=== PATIENT | female | born 1985 | race Hispanic/Latino ===

== ENCOUNTER → 2018-09-20 16:45 | Outpatient (CLI) | payer OTHER, SELFPAY ==
--- NOTE | 2018-09-20 16:52 | DI.RAD.S_ITS ---
PROCEDURE: XR CHEST 2V INDICATIONS: CHEST PAIN SHORTNESS OF BREATH TECHNIQUE: 2 views of the chest were acquired. COMPARISON: None. FINDINGS: Surgical changes and devices: None. Lungs and pleura: Lungs are clear. No pleural effusions or pneumothorax. Mediastinum: Mediastinal contours are normal. Heart size is normal. Bones and chest wall: No suspicious bony abnormalities. Soft tissues appear unremarkable. IMPRESSION: No acute disease Dictated by: Federico Solorzano M.D. on 09/20/2018 at 17:39 Approved by: Federico Solorzano M.D. on 09/20/2018 at 17:40
== END ==
PROVIDERS: Visit Provider Physician Assistant
DX: R07.9 Chest pain, unspecified (principal); R06.02 Shortness of breath
CPT/HCPCS: 71046

== ENCOUNTER → 2019-05-25 08:47 | Outpatient (CLI) | payer OTHER, SELFPAY ==
[2019-05-25 09:31] LABS: Add Manual Diff / Slide Review NO; Basophils Absolute Auto 0 /uL (0-100); Basophils Percent Auto 0.4 % (0-2); Eosinophils Absolute Auto 0 /uL (0-450); Eosinophils Percent Auto 0.4 % (2-4); Hematocrit 38.4 % (36-46); Hemoglobin 13.3 g/dL (12.0-16.0); Lymphocytes Absolute Auto 900 /uL (1100-4500); Lymphocytes Percent Auto 11.4 % (25-40); Mean Corpuscular HGB Conc 34.6 % (30-36); Mean Corpuscular Hemoglobin 31.8 PG (26-34); Mean Corpuscular Volume 91.9 fL (80-100); Monocytes Absolute Auto 400 /uL (0-900); Monocytes Percent Auto 5.4 % (3-14); Neutrophils Absolute Auto 6400 /uL (1500-7000); Neutrophils Percent Auto 82.4 % (50-75); Platelet Count 267 X10^3/uL (150-400); Red Blood Cell Count 4.18 X10^6/uL (4.0-5.2); Red Cell Distribution Width 13.1 % (11.6-14.8); White Blood Cell Count 7.7 X10^3/uL (4.5-11.0)
[2019-05-25 10:33] LABS: Appearance Urine UA CLEAR; Bilirubin Urine UA NEGATIVE (NEGATIVE); Color Urine UA YELLOW; Glucose Urine UA NEGATIVE (Negative); Ketones Urine UA NEGATIVE (NEGATIVE); Leukocyte Esterase Urine UA NEGATIVE (NEGATIVE); Nitrite Urine UA NEGATIVE (Negative); Occult Blood Urine UA TRACE-LYSED (Negative); Protein Urine UA NEGATIVE (Negative); Specific Gravity Urine UA <=1.005 (1.000-1.035); Urobilinogen Urine UA 0.2 E.U./dL (0.2)
[2019-05-25 10:36] LABS: Hepatitis B Surface Antigen NEGATIVE s/c (NEGATIVE)
[2019-05-25 10:51] LABS: HIV 1 & 2 Ab/Ag 4th Gen Combo NEGATIVE (NEGATIVE); Hep C Virus Ab w/Reflex Quant NEGATIVE s/c (NEGATIVE)
[2019-05-25 12:01] LABS: Urine N gonorrhoeae NOT DETECTED
[2019-05-25 12:10] LABS: Urine Chlamydia NOT DETECTED
[2019-05-27 20:56] LABS: RPR Screen Nonreactive (Nonreactive)
== END ==
PROVIDERS: Visit Provider Obstetrics & Gynecology
DX: Z34.01 Encounter for supervision of normal first pregnancy, first trimester (principal)
CPT/HCPCS: 36415; 80055; 81003; 86787; 86803; 86850; 86900; 86901; 87086; 87389; 87491; 87591

== ENCOUNTER → 2019-07-12 08:23 | Outpatient (CLI) | payer OTHER, SELFPAY ==
[2019-07-18 10:42] LABS: Calc Gestational Age 16.3
[2019-07-18 10:43] LABS: AFP, Serum 43.7
[2019-07-18 10:44] LABS: Estriol, Free 0.93; hCG, MoM 2.33; hCG, Serum 87.2
[2019-07-18 10:46] LABS: Inhibin A, Dimeric 230; Maternal Ethnicity HISPANIC; Maternal Weight 120; Number of Fetuses 1
[2019-07-18 10:47] LABS: Cigarette Smoker NO; Donated Egg NO; Previous Pregnancy Down Syndro NO
[2019-08-01 10:25] LABS: Inhibin A, MoM 1.28
== END ==
PROVIDERS: Visit Provider Obstetrics & Gynecology
DX: Z34.02 Encounter for supervision of normal first pregnancy, second trimester (principal)
CPT/HCPCS: 36415; 82105; 82677; 84702; 86336

== ENCOUNTER → 2019-08-08 08:17 | Outpatient (CLI) | payer OTHER, SELFPAY ==
--- NOTE | 2019-08-08 08:21 | DI.US.S_ITS ---
PROCEDURE: US OB >= 14 WEEKS FETUS INDICATIONS: ANATOMY OUTSIDE/PRIOR DATING DATA: Last menstrual period (LMP): Unknown. LMP-based estimated date of delivery (JONA): Unknown. First dating scan (date and location): 05/25/19. Estimated date of delivery (JONA) from first dating scan: 12/28/19. TECHNIQUE: Real-time scanning was performed of the fetus, with image documentation and biometric measurements. Endovaginal scanning: Not performed COMPARISON: [facility], , OB <= 14 WEEKS FETUS, 05/25/2019, 8:11. FINDINGS: General: A single living intrauterine gestation is present. Presentation: Breech. Placenta: Placental position is posterior, without previa. Amniotic fluid index: 21.0 cm, normal range is 5-24 cm. heart rate: 143 beats per minute. Maternal cervical canal: 6.8 cm long. Normal lower limit is 2.5 cm. biometrics: Biparietal diameter: 5.2 cm, 21 weeks 5 days Head circumference: 18.9 cm, 21 weeks 2 days Abdominal circumference: 15.6 cm, 20 weeks 5 days Femur length: 3.2 cm, 20 weeks zero days Estimated gestational age from initial scan: 19 weeks 5 days Composite gestational age from present scan: 21 weeks zero days Estimated weight and percentile: 359 g, 87th percentile Measurement variability for biometric dating: +/- 7 days from 14 weeks to 15 weeks 6 days gestation, +/- 10 days from 16 weeks to 21 weeks 6 days gestation, +/- 2 weeks from 22 weeks to 27 weeks 6 days gestation, +/- 3 weeks for 28 weeks gestation or later. weight reference: 4500 g or EFW >90/95% is considered macrosomia or large for gestational age. EFW <10% is small for gestational age. EFW 5% or less is considered intra-uterine growth restriction. Anatomic survey: Neuro: Ventricles are non-dilated at less than 10 mm. Cisterna magna is normal at 3-11 mm. Cerebellum is normal in size and morphology. Nuchal skin fold: Normal at less than 6 mm between 14-21 weeks gestational age. Face: Nose and lips within normal limits no facial profile not seen due to position Spine: No evidence for spina bifida. Heart: 4-chambered heart is present, with normal ventricular outflow tracts. Diaphragm: Diaphragm is intact. Stomach: Left-sided stomach is present. Kidneys: No hydronephrosis. Normal is less than 5 mm in 2nd trimester, less than 7 mm in 3rd trimester. Cord: 3-vessel cord has orthotopic insertion. Bladder: Normal in size. Extremities: All 4 extremities identified. IMPRESSION: Single living intrauterine fetus in breech presentation. Expected interval growth as above facial profile not well-seen due to gestational position. Recommend followup. Remaining anatomic survey within normal limits Dictated by: Federico Solorzano M.D. on 08/09/2019 at 17:25 Approved by: Federico Solorzano M.D. on 08/09/2019 at 17:29
== END ==
PROVIDERS: PCP Student in an Organized Health Care Education/Training Program; Visit Provider Obstetrics & Gynecology
DX: Z34.02 Encounter for supervision of normal first pregnancy, second trimester (principal); Z3A.21 21 weeks gestation of pregnancy
CPT/HCPCS: 76811

== ENCOUNTER → 2019-08-23 08:14 | Outpatient (CLI) | payer OTHER, SELFPAY ==
--- NOTE | 2019-08-23 08:15 | DI.US.S_ITS ---
PROCEDURE: US OB FOLLOW UP INDICATIONS: FOLLOW-UP PROFILE OUTSIDE/PRIOR DATING DATA: Last menstrual period (LMP): Unknown. LMP-based estimated date of delivery (JONA): Not applicable. First dating scan (date and location): 05/25/2019. Estimated date of delivery (JONA) from first dating scan: 12/28/2019. TECHNIQUE: Real-time scanning was performed of the fetus, with image documentation. Endovaginal scanning: Not performed today. COMPARISON: [facility], OB >= 14 WEEKS FETUS, 08/08/2019, 8:30. FINDINGS: A single living intrauterine gestation is present. Presentation: Vertex. Placenta: Placental position is posterior, without previa. Amniotic fluid index: 19.8 cm, normal range is 5-24 cm. largest vertical fluid pocket measured 6.0 cm. heart rate: 145 beats per minute. Estimated gestational age from initial scan: 21 weeks and 6 days. Evaluation of the facial profile is normal in appearance. IMPRESSION: Single living intrauterine gestation with an estimated gestational age of approximately 21 weeks and 6 days. Normal evaluation of the facial profile on today's study. Dictated by: Antonio Mitchell M.D. on 08/23/2019 at 9:25 Approved by: Antonio Mitchell M.D. on 08/23/2019 at 9:30
== END ==
PROVIDERS: PCP Student in an Organized Health Care Education/Training Program; Referring Provider Obstetrics & Gynecology; Visit Provider Obstetrics & Gynecology
DX: Z36.2 Encounter for other antenatal screening follow-up (principal); Z3A.21 21 weeks gestation of pregnancy
CPT/HCPCS: 76816

== ENCOUNTER → 2019-09-28 12:11 | Outpatient (CLI) | payer OTHER, SELFPAY ==
[2019-09-28 13:42] LABS: Hemoglobin 11.2 g/dL (12.0-16.0)
[2019-09-28 14:27] LABS: GTT (PREG) 1 Hour PP 50gm Dose 144 mg/dL (76-139)
== END ==
PROVIDERS: PCP Student in an Organized Health Care Education/Training Program; Referring Provider Obstetrics & Gynecology; Visit Provider Obstetrics & Gynecology
DX: Z34.02 Encounter for supervision of normal first pregnancy, second trimester (principal); Z3A.28 28 weeks gestation of pregnancy
CPT/HCPCS: 36415; 82950; 85014; 85018

== ENCOUNTER → 2019-10-05 08:51 | Outpatient (CLI) | payer OTHER, SELFPAY ==
[2019-10-05 10:30] LABS: Glucose Fasting Gestational 75 mg/dL (76-95)
[2019-10-05 11:19] LABS: Glucose 1 Hour Gest 138 mg/dL (76-180)
[2019-10-05 12:57] LABS: Glucose Tol Interp,Gestational INTERPRETATION
[2019-10-05 13:12] LABS: Glucose 2 Hour Gest 139 mg/dL (76-155)
[2019-10-05 13:12] LABS: Glucose 3 Hour Gest 115 mg/dL (76-140)
== END ==
PROVIDERS: PCP Student in an Organized Health Care Education/Training Program; Referring Provider Obstetrics & Gynecology; Visit Provider Obstetrics & Gynecology
DX: Z34.03 Encounter for supervision of normal first pregnancy, third trimester (principal); Z3A.28 28 weeks gestation of pregnancy
CPT/HCPCS: 36415; 82951; 82952

== ENCOUNTER → 2019-10-10 12:11 | Outpatient (CLI) | payer OTHER, SELFPAY ==
--- NOTE | 2019-10-10 12:12 | DI.US.S_ITS ---
PROCEDURE: US ABDOMEN LIMITED INDICATIONS: EVAL FOR POSSIBLE INGUINAL OR FEMORAL HERNIA TECHNIQUE: Real-time focused scanning was performed of the abdomen, with image documentation. COMPARISON: None. FINDINGS: Scanning is performed at the area of clinical concern involving the right suprapubic region. At this site, there is a prominent varicosities seen that measures 3.2 x 2.7 x 1.9 cm. Venous compressibility can be seen. No thrombosis is seen at this time. No hernias or additional masses can be seen. IMPRESSION: Prominent superficial varicosity seen at the area of clinical concern that measures up to 3.2 cm. Dictated by: Ric Knapp M.D. on 10/10/2019 at 11:54 Approved by: Ric Knapp M.D. on 10/10/2019 at 11:55
== END ==
PROVIDERS: PCP Student in an Organized Health Care Education/Training Program; Referring Provider Obstetrics & Gynecology; Visit Provider Obstetrics & Gynecology
DX: O99.89 Other specified diseases and conditions complicating pregnancy, childbirth and the puerperium (principal); R19.09 Other intra-abdominal and pelvic swelling, mass and lump
CPT/HCPCS: 76705

== ENCOUNTER → 2019-11-23 08:38 | Outpatient (CLI) | payer OTHER, SELFPAY ==
[2019-11-24 14:48] LABS: Strep Grp B PCR NEG for Grp B Strep
== END ==
PROVIDERS: PCP Student in an Organized Health Care Education/Training Program; Visit Provider Obstetrics & Gynecology
DX: Z34.03 Encounter for supervision of normal first pregnancy, third trimester (principal); Z3A.35 35 weeks gestation of pregnancy
CPT/HCPCS: 87653

== ENCOUNTER 2019-12-26 12:42 | Outpatient (CLI) | payer OTHER, SELFPAY ==
--- NOTE | 2019-12-26 13:53 | PM.OBTRLD ---
Visit Information Visit Information Date of evaluation: 12/26/19 Primary OB Provider: Alice Lombardi Reason for Evaluation: Yes non-stress test Comments/Additional reasons for admission: This patient is a 34yo P0 presenting for scheduled NST for postdates testing. Vital Signs Vital Signs: 128/74, HR 100 PFSH Medical History History of genital warts (Acute) Migraine (Acute ~2014) Painful menstrual periods (Chronic ~2015) PID (acute pelvic inflammatory disease) (Acute) Rubella (Resolved ~1992) Surgical History History of colposcopy (Acute ~2008) Family History Father Migraines Psoriasis Mother Migraines Uterine fibroid Grandfather Heart disease Grandmother Diabetes mellitus Cancer Thyroid disease Family/Other Breast cancer Sister Cystic breast Sister Thyroid disease Social History marital status: household members: spouse pets and animals: Yes (indoor cat and aware) occupational status: employed current occupational exposures/hazards: No special rosendo needs: No travel history: recent leisure activities: exercise Smoking Status: Former smoker second hand exposure: No substance use type: does not use during the past year weight has: remained stable Type(s) of exercise: walking, aerobic and swimming frequency: 3-4 times per week Evaluation Evaluation Baseline heart rate: 125 Variability: Moderate (11-25) monitor accelerations: Present monitor decelerations: Early (x1) Category of Tracing: I Diagnosis, Plan/Disposition Plan/Disposition Plan: Home with scheduled follow up. OB Disposition: home
== END 2019-12-26 13:20 | disposition home or self-care (01) ==
LOC: LABOR 12:49 → OB 12-27 11:05
PROVIDERS: PCP Student in an Organized Health Care Education/Training Program; Referring Provider Obstetrics & Gynecology; Visit Provider Obstetrics & Gynecology
DX: O48.0 Post-term pregnancy (principal); Z3A.40 40 weeks gestation of pregnancy
CPT/HCPCS: 59025; G0378; G0379

== ENCOUNTER 2019-12-29 09:28 | Observation (INO) | payer OTHER, SELFPAY ==
--- NOTE | 2019-12-29 11:37 | P.TNLD_ITS ---
Visit Information Visit Information Date of evaluation: 12/29/19 Primary OB Provider: Alice Lombardi On-call OB Provider: Ranjana Abreu Reason for Evaluation: Yes non-stress test non-stress test reason: other (post dates) [facility] Medical History (Updated 12/29/19 @ 11:40 by Ranjana Abreu MD) History of genital warts (Acute) Migraine (Acute ~2014) Painful menstrual periods (Chronic ~2015) PID (acute pelvic inflammatory disease) (Acute) Rubella (Resolved ~1992) Surgical History History of colposcopy (Acute ~2008) Family History Father Migraines Psoriasis Mother Migraines Uterine fibroid Grandfather Heart disease Grandmother Diabetes mellitus Cancer Thyroid disease Family/Other Breast cancer Sister Cystic breast Sister Thyroid disease Social History marital status: household members: spouse pets and animals: Yes (indoor cat and aware) occupational status: employed current occupational exposures/hazards: No special rosendo needs: No travel history: recent leisure activities: exercise Smoking Status: Former smoker second hand exposure: No substance use type: does not use during the past year weight has: remained stable Type(s) of exercise: walking, aerobic and swimming frequency: 3-4 times per week Evaluation Evaluation Baseline heart rate: 125 Variability: Moderate (11-25) monitor accelerations: Present monitor decelerations: Variable (intermittent with contractions) Contraction Frequency (minutes): 7 Uterine Contraction Intensity: Mild Category of Tracing: II Cervical dilation (cm): 0 Diagnosis, Plan/Disposition Final Diagnosis (1) Post term : Status: Acute Plan/Disposition Plan: Patient in for nonstress test for post term . With contractions intermittent sharp variables. Per Dr. Gandhi ALEXANDRA 10 good breathing and cervix is not favorable. Patient will return tomorrow for repeat nonstress test OB Disposition: home
== END 2019-12-29 12:00 | disposition home or self-care (01) ==
PROVIDERS: Admitting Provider Obstetrics & Gynecology; PCP Student in an Organized Health Care Education/Training Program; Referring Provider Obstetrics & Gynecology; Visit Provider Obstetrics & Gynecology
DX: O48.0 Post-term pregnancy (principal); Z3A.40 40 weeks gestation of pregnancy
CPT/HCPCS: 59025; G0378; G0379

== ENCOUNTER 2019-12-30 09:42 | Outpatient (CLI) | payer OTHER, SELFPAY ==
--- NOTE | 2019-12-30 10:20 | P.TNLD_ITS ---
Visit Information Visit Information Date of evaluation: 12/30/19 Primary OB Provider: Alice Lombardi Reason for Evaluation: Yes non-stress test Comments/Additional reasons for admission: Repeat NST for postdates. No obs tetrical complaints, copious movement this AM. [facility] Medical History History of genital warts (Acute) Migraine (Acute ~2014) Painful menstrual periods (Chronic ~2015) PID (acute pelvic inflammatory disease) (Acute) Rubella (Resolved ~1992) Surgical History History of colposcopy (Acute ~2008) Family History Father Migraines Psoriasis Mother Migraines Uterine fibroid Grandfather Heart disease Grandmother Diabetes mellitus Cancer Thyroid disease Family/Other Breast cancer Sister Cystic breast Sister Thyroid disease Social History marital status: household members: spouse pets and animals: Yes (indoor cat and aware) occupational status: employed current occupational exposures/hazards: No special rosendo needs: No travel history: recent leisure activities: exercise Smoking Status: Former smoker second hand exposure: No substance use type: does not use during the past year weight has: remained stable Type(s) of exercise: walking, aerobic and swimming frequency: 3-4 times per week Review of Systems Constitutional Constitutional: Reports system reviewed and no additional complaints, except as documented Exam Vital Signs (past 8 hours): 116/74, HR 94 Evaluation Evaluation Baseline heart rate: 120 Variability: Moderate (11-25) monitor accelerations: Present monitor decelerations: Absent Category of Tracing: I Diagnosis, Plan/Disposition Plan/Disposition Plan: Home with routine precautions and IOL in 3 days. Discussed risks of expectant management vs. postdates induction at 41 weeks, discussed antepartum and postdates precautions. Patient and partner concerned about size of baby, discussed option of elective primary c section, benefits, and risks. All questions answered.
== END 2019-12-30 10:30 | disposition home or self-care (01) ==
LOC: LABOR 10:51 → OB 01-02 11:32
PROVIDERS: PCP Student in an Organized Health Care Education/Training Program; Referring Provider Obstetrics & Gynecology; Visit Provider Obstetrics & Gynecology
DX: O48.0 Post-term pregnancy (principal); Z3A.41 41 weeks gestation of pregnancy
CPT/HCPCS: 59025; G0378; G0379

== ENCOUNTER → 2020-01-01 08:19 | Outpatient (CLI) | payer OTHER, SELFPAY ==
[2020-01-02 08:45] LABS: COVID19 Sendout Not Detected (Not Detect)
== END ==
PROVIDERS: PCP Student in an Organized Health Care Education/Training Program; Visit Provider Physician Assistant
DX: Z34.90 Encounter for supervision of normal pregnancy, unspecified, unspecified trimester (principal)
CPT/HCPCS: 87635

== ENCOUNTER 2020-01-02 18:22 | Inpatient (IN) | payer OTHER, SELFPAY ==
[2020-01-02 20:02] LABS: Add Manual Diff / Slide Review NO; Basophils Absolute Auto 0 /uL (0-100); Basophils Percent Auto 0.4 % (0-2); Eosinophils Absolute Auto 0 /uL (0-450); Eosinophils Percent Auto 0.5 % (2-4); Hematocrit 39.7 % (36-46); Hemoglobin 13.9 g/dL (12.0-16.0); Lymphocytes Absolute Auto 1100 /uL (1100-4500); Lymphocytes Percent Auto 15.5 % (25-40); Mean Corpuscular HGB Conc 34.9 % (30-36); Mean Corpuscular Hemoglobin 32.9 PG (26-34); Mean Corpuscular Volume 94.2 fL (80-100); Monocytes Absolute Auto 500 /uL (0-900); Monocytes Percent Auto 7.6 % (3-14); Neutrophils Absolute Auto 5400 /uL (1500-7000); Platelet Count 211 X10^3/uL (150-400); Red Blood Cell Count 4.22 X10^6/uL (4.0-5.2); Red Cell Distribution Width 14.1 % (11.6-14.8)
[2020-01-02 20:14] VITALS: BP 124/64
--- NOTE | 2020-01-02 21:57 | P.HPOB_ITS ---
OB HPI Date/Time Date of admission: 01/02/20 Date Patient Seen: 01/02/20 Time Patient Seen: 21:30 History of Present Condition Chief complaint: Induction : 1 Para: 0 Estimated Date of Delivery: 12/25/19 Estimated Gestational Age (weeks): 41 Narrative: This patient is a 34yo @41+1 admitted for scheduled postdates induction and found to be in early labor. She reports contractions every 4-5 minutes, normal movement, no LOF or vaginal bleeding, and no other complaints. Her has been obstetrically uncomplicated, and she denies contributory medical, surgical, gynecologic, family, or social history. Comments: Indications Indication for induction OB: post dates History of Present care: good care, initiated at week # (9), number of visits (15) and pounds weight gain (41) Dating criteria: LMP confirmed by 1st trimester US Ultrasounds: normal 1st trimester US and normal mid trimester US Obstetrical complications: none Medical complications: none Preadmission Labs Blood type: O (+) positive -: Antibody screen: negative, HBsAG: negative, HIV: negative and RPR/VDLR: negative -: Rubella: immune and Varicella: immune Quad screen: Normal 1 hr GTT: 144 3 hr GTT: 1 hr (wnl), 2 hr (wnl) and 3 hr (wnl) Evaluation Evaluation Baseline heart rate: 140 Variability: Moderate (11-25) monitor accelerations: Present monitor decelerations: Variable (1-2x per hr) Contraction Frequency (minutes): 3 Category of Tracing: I Cervical dilation (cm): 1 Cervical effacement (%): 75 station: -2 Laboratory results: Laboratory Tests 01/02/20 01/02/20 19:45 19:45 WBC 7.0 RBC 4.22 Hgb 13.9 Hct 39.7 MCV 94.2 MCH 32.9 MCHC 34.9 RDW 14.1 Plt Count 211 Neut % (Auto) 76.0 H Lymph % (Auto) 15.5 L Hendry % (Auto) 7.6 Eos % (Auto) 0.5 L Baso % (Auto) 0.4 Neut # (Auto) 5400 Lymph # (Auto) 1100 Hendry # (Auto) 500 Eos # (Auto) 0 Baso # (Auto) 0 Blood Type O Positive Antibody Screen Negative [facility] Medical History History of genital warts (Acute) Migraine (Acute ~2014) Painful menstrual periods (Chronic ~2015) PID (acute pelvic inflammatory disease) (Acute) Rubella (Resolved ~1992) Surgical History History of colposcopy (Acute ~2008) Family History Father Migraines Psoriasis Mother Migraines Uterine fibroid Grandfather Heart disease Grandmother Diabetes mellitus Cancer Thyroid disease Family/Other Breast cancer Sister Cystic breast Sister Thyroid disease Social History marital status: household members: spouse pets and animals: Yes (indoor cat and aware) occupational status: employed current occupational exposures/hazards: No special rosendo needs: No travel history: recent leisure activities: exercise Smoking Status: Never smoker second hand exposure: No substance use type: does not use during the past year weight has: remained stable Type(s) of exercise: walking, aerobic and swimming frequency: 3-4 times per week Meds Home Medications and Allergies Home Medications Medication Instructions Recorded Confirmed Type cholecalciferol (vitamin D3) 25 1,000 unit PO DAILY 05/23/19 01/02/20 History mcg (1,000 unit) capsule prenat.vits,dalila,[id number] 1 tab PO DAILY 05/23/19 01/02/20 History Allergies Allergy/AdvReac Type Severity Reaction Status Date / Time No Known Drug Allergies Allergy Verified 12/29/19 08:07 Review of Systems Constitutional Constitutional: Reports system reviewed and no additional complaints, except as documented Cardiovascular Cardiovascular: Reports system reviewed and no additional complaints, except as documented Respiratory Respiratory: Reports system reviewed and no additional complaints, except as documented Gastrointestinal Gastrointestinal: Reports system reviewed and no additional complaints, except as documented Genitourinary Genitourinary: Reports as per HPI Neurologic Neurologic: Reports system reviewed and no additional complaints, except as documented Exam Vital Signs (past 8 hours): - 129/64, HR 90, T 37.3C 01/02/20 20:14 Blood Pressure 124/64 Const General: cooperative, healthy appearing and comfortable GI Palpation: No tender External Female Exam: normal external appearance Objective Labs Result Diagrams: 01/02/20 19:45 Labs: Laboratory Results - last 24 hr 01/02/20 01/02/20 19:45 19:45 WBC 7.0 RBC 4.22 Hgb 13.9 Hct 39.7 MCV 94.2 MCH 32.9 MCHC 34.9 RDW 14.1 Plt Count 211 Neut % (Auto) 76.0 H Lymph % (Auto) 15.5 L Hendry % (Auto) 7.6 Eos % (Auto) 0.5 L Baso % (Auto) 0.4 Neut # (Auto) 5400 Lymph # (Auto) 1100 Hendry # (Auto) 500 Eos # (Auto) 0 Baso # (Auto) 0 Blood Type O Positive Antibody Screen Negative Assessment and Plan Assessment and Plan Assessment and Plan narrative: This patient is admitted in early labor, with symptomatic contractions too often to allow further medical cervical ripening and an intermittently cat 2 EFM with periodic variable decelerations. The EFM is overall reassuring for good oxygenation status with moderate variability and accelerations. The status of the heart rate tracing along with possible etiologies such as cord compression were discussed with the patient and her spouse. We discussed that the cause of these decelerations is often uncertain until the time of delivery, and that our options include expectant management overnight, mechanical cervical ripening with a chilel balloon, or section. Risks and benefits of each of these options were discussed and all questions were answered, and the patient and her partner opted for continuous monitoring and expectant management overnight. They both vocalized a preference for natural labor and processes wherever possible. - continuous monitoring - breakfast in AM - repeat exam in AM followed by plan
--- NOTE | 2020-01-03 08:03 | PM.OBPNLAB ---
Date/Time Date Patient Seen: 01/03/20 Time Patient Seen: 07:45 Pain Control Pain control: tolerating well Pelvic Exam Dilation (cm): 0 Effacement (%): 80 station: -2 Amniotic membrane status: Intact Contractions Contractions on admission: irregular Contraction frequency (min): 5 Status status: Category ll Heart Rate Baseline: 125 Monitor Accelerations: Present Monitor Decelerations: Variable Monitor Variability: Moderate Comments: episodes of recurrent late and variable decelerations which resolve, with moderate variability and accels throughout Assessment and Plan Assessment: induction ongoing Comments: This patient was admitted overnight for planned cervical ripening, but was teetee too frequently. On exam this morning, patient has made no cervical change, and though the external os was 1cm per nursing exams at admission, the internal os is closed and not amenable to chilel balloon. We discussed the EFM, section vs. pitocin vs further cervical ripening. After all questions were answered, the patient is to be administered 25mcg vaginal cytotec.
[2020-01-03] MEDS: miSOPROStoL 25 MCG TABLET VAG (08:27)
[2020-01-03] MEDS: LACTATED RINGERS 1,000 ML 100 ML IV ×3 (09:20→18:45)
--- NOTE | 2020-01-03 12:36 | PM.OBPNLAB ---
Date/Time Date Patient Seen: 01/03/20 Time Patient Seen: 12:37 Pain Control Pain control: tolerating well Comments: VSS, reports symptomatic contraction q7 minutes Pelvic Exam Dilation (cm): 0 Effacement (%): 100 station: -2 Comments: Unclear if slow leak of clear amniotic fluid vs. gel from repeat exams, amnisure limited due to gel from exam. Will continue to monitor. Contractions Contraction frequency (min): 3 Contraction duration (min): 1 Contraction pattern: Regular Contraction intensity: Mild Status status: Category ll Heart Rate Baseline: 125 Monitor Accelerations: Present Monitor Decelerations: Late (x1) Monitor Variability: Moderate Comments: several hours of cat 1 EFM, with late or variable deceleration approx every 30 minutes. Assessment and Plan Assessment: induction ongoing Plan: other Comments: This patient is a 34yo P0 @41+2, presenting for induction for postdates complicated by persistent though periodic late or variable decelerations. The patient has been in latent labor overnight, and receive 25mcg of vaginal cytotec this AM. Her cervix is very soft and fully effaced though closed, and with the persistent decelerations, we discussed that further medication cervical ripening is unlikely to improve labor progression, but is irreversible and and could cause more recurrent decelerations. We discussed pitocin for further induction due to the rapid onset and offset and potential for titration. We discussed primary section for inability to tolerate induction now, and possible outcomes of pitocin induction. We discussed the risks of section for this including risks of infection, hemorrhage, and damage to bowel and bladder, and the risk of placentation abnormalities and uterine rupture in future pregnancies. All questions were answered, and the patient and her partner are discussing their options.
--- NOTE | 2020-01-03 15:02 | PM.PREOP ---
Pre-operative Note COVID-19 COVID-19 status: Negative Result date/Date tested (Pos, Neg/Pending): 01/01/20 Interval Note History & Physical reviewed/Exam performed by Physician: Yes Changes to H&P: No H&P completed within 30 days and has changed as indicated here:: After extensive discussion of risks, benefits, and alternatives, informed consent for section was obtained. The heart rate tracing is reassuring with spaced contractions, moderate variability, and copious accelerations, though periodic shallow lates depending on maternal positioning. As the section is not emergent, we will work with the OR to expedite delivery, with continuous monitoring.
[2020-01-03] MEDS: AZITHROMYCIN 500 MG in DEXTROSE 5% IN WATER 250 ML IV (16:06)
[2020-01-03] MEDS: CEFAZOLIN 2 GM/100 ML FROZ.PIGGY IV (17:00)
--- NOTE | 2020-01-03 17:35 | SUR.OPER ---
Supine on Padded OR bed, head on pillow, safety belt at thigh, arms secured on padded arm boards at <90 degrees abduction. Bump under right buttock. Legs uncrossed with pillow under knees, gel pad to heels, tape over blanket to lower legs.
[2020-01-03 18:12] VITALS: BP 104/69; PULSE 87; RESP 12; TEMP 36.8; O2SAT 99
[2020-01-03 18:17] VITALS: BP 110/73; PULSE 87; RESP 17; O2SAT 99
[2020-01-03 18:22] VITALS: BP 110/70; PULSE 76; RESP 12; O2SAT 98
--- NOTE | 2020-01-03 18:26 | SUR.OPER ---
[facility] 119 LIVE BOY BORN AT 1726
[2020-01-03 18:27] VITALS: BP 107/77; PULSE 83; RESP 9; O2SAT 100
--- NOTE | 2020-01-03 18:29 | PM.OP.1 ---
Operative Date/Time/Diagnoses Date of procedure: 01/03/20 Time of procedure: 17:00 Pre-op diagnosis: intolerance of labor Post-op diagnosis: same Procedure & Clinicians Procedure: primary section Same procedure as scheduled: Yes Indications: intolerance of labor Surgeon: Alice Lombardi Low Raw Sugar Cutter: Marie Johnson Anesthesia Type: Spinal Operative Notes Findings: Normal uterus, tubes, and ovaries Closure Type: primary Specimen(s): none sent Estimated Blood Loss (mL): 500 Blood products transfused: none Procedure in detail: EBL: 500ccs Fluids:2000ccs LR UOP: 200ccs yellow urine Findings: male in cephalic, OP presentation, loose nuchal cord x1, Apgars 9+9, weight 9#5, normal uterus, tubes, ovaries. Procedures: The patient was taken to the operating room where spinal anesthesia was placed and found to be adequate. She was prepped and draped in the normal sterile fashion in the dorsal supine position with a leftward tilt. A Pfannenstiel skin incision was made with a scalpel and carried through to the underlying layer of fascia. The fascia was incised in the midline and the incision extended laterally with Sales scissors. The inferior aspect of this incision was grasped with Hao clamps, elevated, and the underlying rectus muscles dissected off bluntly. Attention was then turned to the superior aspect of this incision which, in a similar fashion, was grasped, tented up with the Hao clamps, and the rectus muscles dissected off bluntly. The rectus muscles were then in the midline, and the peritoneum identified, tented up, and entered sharply with Metzenbaum scissors. The peritoneal incision was extended superiorly and inferiorly with good visualization of the bladder. The bladder blade was inserted and the vesicao uterine peritoneum identified, grasped with pickups, and entered sharply with the Metzenbaum scissors. This incision was extended laterally, and the bladder flap created digitally. The bladder blade was then reinserted and the lower uterine segment incised in transverse fashion with the scalpel. The uterine incision was bluntly extended laterally. The bladder blade was removed, and the infant's head delivered atraumatically with assistance from a soft cup vacuum. One loose nuchal cord was reduced. The shoulders were delivered with some difficulty after delivering the posterior, then the anterior arm. After 45 seconds of delayed cord clamping, the cord was clamped and cut. The nose and mouth were suctioned as needed with a bulb syringe, and the was handed off to awaiting pediatricians. The placenta was then removed spontaneously, and the uterus was exteriorized and cleared of all clots and debris. The uterine incision was repaired with 1-0 chromic in a running, locked fashion and a 2nd layer of the same suture was used to obtain excellent hemostasis. The uterus was returned to the abdomen, and the gutters were cleared of all clots and debris. The bladder flap was repaired with 2-0 vicryl in the usual fashion. The fascia was reapproximated with 0 Vicryl in a running fashion. The subcutaneous layer was placed with 3 0 Vicryl in an interrupted fashion and the skin was closed with 4-0 biosyn in a running fashion. The patient tolerated the procedure well sponge lap and needle counts were correct x2. 2 g of Ancef and 500mg of Azithromycin were given at commencement of the case. The patient was taken to the recovery room in stable condition. Complications: none Post-operative Condition: stable Disposition: PACU Plan for aftercare: Routine postoperative care. AM CBC.
--- NOTE | 2020-01-03 18:35 | SUR.PHASEI ---
Report called to [facility]
[2020-01-03 18:38] VITALS: TEMP 36.3
--- NOTE | 2020-01-03 18:52 | SUR.PHASEI ---
Patient transferred to the center. VS stable. IV saline locked. Fundus and pad checked with RN. Patient alert and oriented. Glasses with patient, rings taped on finger.
[2020-01-03] MEDS: METOCLOPRAMIDE 10 MG/2 ML INJ IV (20:57)
[2020-01-03] MEDS: KETOROLAC 30 MG/ML VIAL IV (23:41)
[2020-01-04] MEDS: LACTATED RINGERS 1,000 ML 100 ML IV (03:04)
[2020-01-04] MEDS: KETOROLAC 30 MG/ML VIAL IV ×2 (05:33→11:49)
[2020-01-04 06:23] LABS: Add Manual Diff / Slide Review NO; Basophils Absolute Auto 0 /uL (0-100); Basophils Percent Auto 0.3 % (0-2); Eosinophils Absolute Auto 0 /uL (0-450); Eosinophils Percent Auto 0.1 % (2-4); Hematocrit 37.2 % (36-46); Hemoglobin 12.8 g/dL (12.0-16.0); Lymphocytes Absolute Auto 1100 /uL (1100-4500); Lymphocytes Percent Auto 8.2 % (25-40); Mean Corpuscular HGB Conc 34.5 % (30-36); Mean Corpuscular Hemoglobin 32.2 PG (26-34); Mean Corpuscular Volume 93.4 fL (80-100); Monocytes Absolute Auto 900 /uL (0-900); Monocytes Percent Auto 6.4 % (3-14); Neutrophils Absolute Auto 11400 /uL (1500-7000); Platelet Count 180 X10^3/uL (150-400); Red Blood Cell Count 3.98 X10^6/uL (4.0-5.2); Red Cell Distribution Width 14.1 % (11.6-14.8); White Blood Cell Count 13.4 X10^3/uL (4.5-11.0)
--- NOTE | 2020-01-04 07:56 | P.PNOB_ITS ---
Subjective - OB Subjective Patient comments: no complaints, pain well controlled and tolerating diet baby status: doing well and nursing well feeding status: exclusively breast feeding Narrative: This patient is POD#1 s/p pCS for intolerance of induction of labor in the setting of postdates and an LGA fetus in OP presentation. The patient reports feeling well with no complaints, good pain control, improved nausea, and tolerating PO. Date Patient Seen: 01/04/20 Time Patient Seen: 07:56 Exam Vital Signs (past 8 hours): 111/70, HR 73, T 99.3F, RR 17 Oxygen Delivery Method Room Air Const General: cooperative, healthy appearing and comfortable Resp Effort & Inspection: normal respiratory effort Auscultation: clear to auscultation bilaterally Cardio Rate: regular rate Rhythm: regular rhythm GI Inspection: distended (mildly tympanic) Palpation: soft and No tender Other: fundus firm, well below u. Incision c/d/i. Objective Labs Result Diagrams: 01/04/20 06:00 Labs: Laboratory Results - last 24 hr 01/04/20 06:00 WBC 13.4 H D RBC 3.98 L Hgb 12.8 Hct 37.2 MCV 93.4 MCH 32.2 MCHC 34.5 RDW 14.1 Plt Count 180 Neut % (Auto) 85.0 H Lymph % (Auto) 8.2 L Placer % (Auto) 6.4 Eos % (Auto) 0.1 L Baso % (Auto) 0.3 Neut # (Auto) 83814 H Lymph # (Auto) 1100 Placer # (Auto) 900 Eos # (Auto) 0 Baso # (Auto) 0 Assessment & Plan Plan day: 1 plan OB: routine postop care Comments: This patient is recovering well, meeting postoperative goals approp riately. Patient is for voiding trial today, for increased PO intake, and to ambulate. Anticipate discharge tomorrow. Time Spent With Patient Time: Total time spent is greater than 50% in coordination of care (as documented) at patient's floor/unit and/or counseling patient: Time with patient: 15-24 minutes
[2020-01-04] MEDS: LANOLIN OINT 7 GM 1 APPLIC TOP (11:48)
[2020-01-04] MEDS: DOCUSATE 250 MG CAPSULE PO (11:49)
[2020-01-04] MEDS: ACETAMINOPHEN 325 MG TABLET 650 MG PO (19:41)
[2020-01-04] MEDS: IBUPROFEN 600 MG TABLET PO (20:23)
[2020-01-05] MEDS: IBUPROFEN 600 MG TABLET PO ×2 (02:32→11:15)
--- NOTE | 2020-01-05 09:36 | PM.OBDS.1 ---
Discharge Providers Provider Date of admission: 01/02/20 18:22 Discharge Date: 01/05/20 Primary care physician: Aye Montez PA-C Consults: 01/03/20 19:04 Consult to [employer] Routine Comment: Discharge provider: Alice Lombardi MD Summary Hospital Course Date Patient Seen: 01/05/20 Procedures: This patient presented for induction of labor after 41 weeks, teetee spontaneously with an intermittently cat 2 EFM and a closed though fully effaced cervix. When contractions slowed with no cervical change, she was induced with vaginal cytotec, and had a persistently cat 2 EFM when regular contractions were achieved. She was taken for primay section, which was uncomplicated, and discharged on POD#2 for routine follow up. Hospital Course: This patient presented for induction of labor after 41 weeks, teetee spontaneously with an intermittently cat 2 EFM and a closed though fully effaced cervix. When contractions slowed with no cervical change, she was induced with vaginal cytotec, and had a persistently cat 2 EFM when regular contractions were achieved. She was taken for primary section, which was uncomplicated, and discharged on POD#2 for routine follow up. Peripartum Data Infant Delivery Method: Section complications: none 1: Gender: Male Disposition of : home Status at Discharge Cognitive/behavioral status at discharge: oriented Functional status at discharge: independent ambulation Overall status at discharge: patient is progressing back to baseline Time Spent with Patient Time attestation: Total time spent providing and/or coordinating discharge services: Objective Labs Result Diagrams: 01/04/20 06:00 Exam Vital Signs (past 8 hours): Oxygen Delivery Method Room Air Discharge Plan Discharge Plan Patient Disposition: Home Discharge orders & Medications Prescriptions: New oxycodone 5 mg tablet 5 mg PO Q8H PRN (Reason: pain) Qty: 14 RF: 0 Continued prenat.vits,dalila,[id number] Tablet 1 tab PO DAILY RF: 0 cholecalciferol (vitamin D3) 1,000 unit capsule 1,000 unit PO DAILY RF: 0 Follow up/Referrals: Alice Lombardi MD [Physician] - 01/10/20 2:00 pm (Incision check Check in 15 minutes to appointment) Aye Montez PA-C [Primary Care Provider] - Diet/Activity/Treatments Diet: Regular Activity: Nothing in the vagina for 6 weeks. Avoid heavy lifting for 6 weeks. If you have increasing bleeding, fevers, chills, nausea, vomiting, headaches, visual changes, or any other concerns, call or come to the emergency room. Skin/Wound/Dressing Care Report to your healthcare provider any signs of infection, such as:: chills, fever, night sweats, increased pain, unusual drainage and unusual redness Visit Report/Discharge Packet Instructions: DI for Stand Alone Forms: Discharge: Care Visit Report Forms: Patient Portal/API, Stroke Signs & Symptoms Discharge Data Primary Care Provider: Aye Montez Discharges patient from system. Discharge Date/Time: 01/05/20 12:30
--- NOTE | 2020-01-05 09:36 | PM.OBPN.1 ---
Subjective - OB Subjective Patient comments: no complaints, pain well controlled, tolerating diet and flatus present baby status: doing well Date Patient Seen: 01/05/20 Time Patient Seen: 08:30 Interval history: Patient POD#2 s/p pCS for failed induction and intolerance of labor. Patient meeting postop milestones with good pain control, mild lochia, tolerating PO, ambulating, and passage of flatus. Exam Vital Signs (past 8 hours): VSS Oxygen Delivery Method Room Air Const General: cooperative, healthy appearing and comfortable Resp Effort & Inspection: normal respiratory effort Auscultation: clear to auscultation bilaterally Cardio Rate: regular rate Rhythm: regular rhythm Skin General: no rashes or lesions noted Objective Labs Result Diagrams: 01/04/20 06:00 Assessment & Plan Assessment and Plan (1) delivery delivered: Status: Acute Plan day: 2 plan OB: routine postop care and discharge home Comments: Patient meeting postop goals and appropriate for discharge home. Precautions were discussed, and the patient was encouraged to call or come in with any symptoms or concerns. Patient will be seen in clinic in 1 week for incision check. Time Spent With Patient Time: Total time spent is greater than 50% in coordination of care (as documented) at patient's floor/unit and/or counseling patient: Time with patient: 15-24 minutes
[2020-01-05 11:09] VITALS: BP 107/77; PULSE 83; RESP 9; TEMP 36.3
[2020-01-05] MEDS: DOCUSATE 250 MG CAPSULE PO (11:15)
[2020-01-05] MEDS: ACETAMINOPHEN 325 MG TABLET 650 MG PO (11:16)
== END 2020-01-05 12:30 | disposition home or self-care (01) | DRG 788 ==
PROVIDERS: Admitting Provider Obstetrics & Gynecology; PCP Student in an Organized Health Care Education/Training Program; Referring Provider Obstetrics & Gynecology; Visit Provider Obstetrics & Gynecology
PROC: 10D00Z1 Extraction of Products of Conception, Low, Open Approach (ICD-10-PCS; CPT 59514; principal; 2020-01-03 15:30)
DX: O48.0 Post-term pregnancy (principal); Z3A.41 41 weeks gestation of pregnancy; Z37.0 Single live birth; O76 Abnormality in fetal heart rate and rhythm complicating labor and delivery; O69.81X0 Labor and delivery complicated by cord around neck, without compression, not applicable or unspecified
CPT/HCPCS: 36415; 59050; 59200; 59510; 59514; 85025; 86850; 86900; 86901; 87635; G0379; J0690; J1885; J2250; J2274; J2765